=== PATIENT | male | born 1985 | race Caucasian/White ===

== ENCOUNTER 2024-08-24 20:53 | Emergency (ER) | payer BC ==
[~2024-08-24] VITALS: Ht 182.9 cm; Wt 80.7 kg
[2024-08-24] MEDS ORDERED: IBUPROFEN 400 MG TABLET ONE (22:52)
[2024-08-24] MEDS: IBUPROFEN 400 MG TABLET PO ONE (22:52)
[2024-08-24 22:59] VITALS: BP 122/80; TEMP 98.2; O2SAT 98
== END 2024-08-24 23:02 | disposition home or self-care (01) ==
LOC: ER 21:01
DX: S00.83XA Contusion of other part of head, initial encounter (principal); W22.09XA Striking against other stationary object, initial encounter; Y93.01 Activity, walking, marching and hiking; Y92.89 Other specified places as the place of occurrence of the external cause; Y99.8 Other external cause status
CPT/HCPCS: 70450-TC